=== PATIENT | male | born 1995 | race Caucasian/White ===

== ENCOUNTER 2022-02-05 23:37 | Emergency (ER) | payer MEDICAID ==
[~2022-02-05] VITALS: Ht 165.1 cm; Wt 82.0 kg
[2022-02-05 23:43] VITALS: BP 142/82
== END 2022-02-06 00:35 | disposition home or self-care (01) ==
LOC: ER 23:37
DX: T26.92XA Corrosion of left eye and adnexa, part unspecified, initial encounter (principal); H57.89 Other specified disorders of eye and adnexa; Z00.00 Encounter for general adult medical examination without abnormal findings; X58.XXXA Exposure to other specified factors, initial encounter
CPT/HCPCS: 99283

== ENCOUNTER 2023-03-26 05:34 | Emergency (ER) | payer MEDICAID ==
[~2023-03-26] VITALS: Ht 170.2 cm; Wt 64.0 kg
[2023-03-26] MEDS ORDERED: IPRATROPIUM/ALBUTEROL 0.5-3(2.5)MG/3ML NEB HHN ONE (08:00)
[2023-03-26] MEDS ORDERED: PREDNISONE 20MG TABLET PO ONE (08:00)
[2023-03-26 08:16] VITALS: PULSE 82; RESP 18; O2SAT 96
[2023-03-26] MEDS ORDERED: ALBU90AE INH (12:41)
[2023-03-26] MEDS ORDERED: P50 MT (12:41)
[2023-03-26] MEDS ORDERED: AZIT250T12 MT (12:41)
[2023-03-26] MEDS ORDERED: IBUP-1523 MT (12:41)
[2023-03-26 13:20] VITALS: BP 128/65; PULSE 93; RESP 18; TEMP 98.1
== END 2023-03-26 13:28 | disposition home or self-care (01) ==
LOC: ER 05:34
DX: J40 Bronchitis, not specified as acute or chronic (principal); F17.200 Nicotine dependence, unspecified, uncomplicated; Z20.822 Contact with and (suspected) exposure to COVID-19
CPT/HCPCS: 87804 ×2; 94640; 99283; 87426; J7512; Z7610 ×3